=== PATIENT | female | born 1955 | race Caucasian/White ===

== ENCOUNTER 2022-04-13 13:20 | Outpatient (CLI) | payer MEDICARE, BC, SELFPAY ==
--- NOTE | 2022-04-13 13:30 | CRLHL7_ITS ---
For Patients: As a result of the Century Cures Act, medical imaging exams and procedure reports are released immediately into your electronic medical record. You may view this report before your referring provider. If you have questions, please contact your health care provider. DXA BONE MINERAL DENSITY STUDY Current height (in): 67. Weight (lb): 140. Menopause age: 56. Ethnicity: White. 1. Have you had a previous hip or vertebral fracture? No. 2. Have you had any fractures during your adult life which did not result from significant trauma (e.g., auto accident)? No. 3. Did either of your parents have a hip fracture? Yes. 4. Do you smoke? No. 5. Have you ever taken Glucocorticoids? No. 6. Do you have rheumatoid arthritis? No. 7. Do you have secondary osteoporosis? No. 8. Do you drink 3 or more alcoholic drinks per day? No. 9. Are you being treated for osteoporosis? No. 10. Have you ever taken any of the following medications: Actonel, Evista, Fosamax, Miacalcin, Reclast, Boniva, Forteo, HRT (i.e. estrogen/hormone therapy), Protelos, Prolia, Vitamin D, Calcium, other ??? please specify. ANSWER: Yes, calcium. 11. Do you have any of the following medical conditions: Anorexia or bulimia, asthma or emphysema, end stage renal disease, hyperparathyroidism, any seizure disorders, cancer, inflammatory bowel diseases, hysterectomy, other ??? please specify. ANSWER: No. 12. What was your maximum height (inches)? 67.5. 13. Do you perform weight bearing exercise regularly? Yes. 14. Do you regularly consume dairy products? Yes. 15. Do you drink caffeinated beverages? Yes. 16. At what age did your period start? 15. 17. Are you premenopausal? No. 18. How many full term pregnancies have you had? 3. 19. Have you ever missed your period for more than 6 months in a row (not including or menopause)? No. TECHNIQUE: Bone mineral density study was performed using the TBS. FINDINGS: The results of the study expressed as bone mineral density (BMD) are as follows: Lumbar spine L1 to L4: BMD: 0.810 g/cm2. T-score: -2.2. Z-score: -0.3. Neck Left: BMD: 0.754 g/cm2. T-score: -0.9. Z-score: 0.7. Right: BMD: 0.725 g/cm2. T-score: -1.1. Z-score: 0.4. Total Left: BMD: 0.876 g/cm2. T-score: -0.5. Z-score: 0.7. Right: BMD: 0.854 g/cm2. T-score: -0.7. Z-score: 0.6. IMPRESSION: Osteopenia. *Comparison exams done prior to 02/2020 were performed on different unit, [facility]. COMPARISON: Compared with scan of 2016, the bone mineral density has decreased by 7.5 percent at the spine and increased by 0.9 percent at the hip. FRAX 10-year Fracture Risk Major Osteoporotic Fracture: 14 percent Hip Fracture: 0.8percent Reported Risk Factors: [place] () Neck BMD = 0.725, BMI = 21.9, parental fracture Estrada Block M.D. Diagnostic Radiologist [email or web address] SUKH/Dictated by: Estrada Block MD @ 04/13/2022 2:59:00 PM (Electronically Signed)
--- NOTE | 2022-04-13 14:00 | CRLHL7_ITS ---
For Patients: As a result of the Century Cures Act, medical imaging exams and procedure reports are released immediately into your electronic medical record. You may view this report before your referring provider. If you have questions, please contact your health care provider. BILATERAL SCREENING MAMMOGRAM WITH COMPUTER-AIDED DETECTION AND TOMOSYNTHESIS TECHNIQUE: CC and MLO views were obtained. These mammographic images have been obtained using full-field digital technique. These mammographic images were interpreted with the benefit of computer-aided detection. Breast Tomosynthesis was used in this interpretation. COMPARISON FILM: 12/24/18, 09/18/17, 07/24/16 FINDINGS: There are scattered areas of fibroglandular density IMPRESSION: There is no radiographic evidence for malignancy. ASSESSMENT: BI-RADS Category 1: Negative RECOMMENDATION: Routine screening mammogram in 1 year. A lay language report of this examination will be provided to the patient. Estrada Block M.D. Diagnostic Radiologist [email or web address] SUKH/Dictated by: Estrada Block MD @ 04/14/2022 12:32:00 PM (Electronically Signed)
== END 2022-04-13 13:21 | disposition home or self-care (01) ==
LOC: RAD 13:23
PROVIDERS: PCP Internal Medicine; Visit Provider Obstetrics & Gynecology
DX: Z12.31 Encounter for screening mammogram for malignant neoplasm of breast (principal); M85.80 Other specified disorders of bone density and structure, unspecified site; M85.89 Other specified disorders of bone density and structure, multiple sites
CPT/HCPCS: 77063; 77067; 77080

== ENCOUNTER 2022-11-03 08:55 | Outpatient (CLI) | payer MEDICARE, BC, SELFPAY ==
[2022-11-03 10:11] LABS: Cholesterol* 245 mg/dL (90-199); Triglycerides* 139 mg/dL (40-149)
[2022-11-03 10:12] LABS: HDL Cholesterol* 85 mg/dL (>=50); LDL Cholesterol Calculated 132 mg/dL (<100)
[2022-11-03 10:28] LABS: Vitamin D 25 Hydroxy* 43 ng/mL (30-80)
== END 2022-11-03 08:56 | disposition home or self-care (01) ==
LOC: NFLDREF 08:55
PROVIDERS: PCP Internal Medicine; Visit Provider Internal Medicine
DX: E03.9 Hypothyroidism, unspecified (principal); E78.5 Hyperlipidemia, unspecified; M85.80 Other specified disorders of bone density and structure, unspecified site
CPT/HCPCS: 80061; 82306; 84443

== ENCOUNTER 2023-04-25 07:35 | Outpatient (CLI) | payer MEDICARE, BC, SELFPAY | END 2023-04-25 07:36 | disposition home or self-care (01) | LOC: NFLDREF 04-26 08:18 | PROVIDERS: PCP Internal Medicine; Referring Provider Internal Medicine; Visit Provider Internal Medicine | DX: E78.5 Hyperlipidemia, unspecified (principal) | CPT/HCPCS: 80061 ==

== ENCOUNTER 2023-06-19 15:32 | Outpatient (CLI) | payer MEDICARE, BC, SELFPAY ==
--- NOTE | 2023-06-19 15:45 | CRLHL7_ITS ---
For Patients: As a result of the Cures Act, medical imaging exams and procedure reports are released immediately into your electronic medical record. You may view this report before your referring provider. If you have questions, please contact your health care provider. BILATERAL SCREENING MAMMOGRAM WITH COMPUTER-AIDED DETECTION AND TOMOSYNTHESIS TECHNIQUE: CC and MLO views were obtained. These mammographic images have been obtained using full-field digital technique. These mammographic images were interpreted with the benefit of computer-aided detection. Breast tomosynthesis was used in this interpretation. COMPARISON FILM: 04/13/22, 12/24/18, 09/18/17. FINDINGS: There are scattered areas of fibroglandular density. IMPRESSION: There is no radiographic evidence for malignancy. ASSESSMENT: BI-RADS Category 1: Negative RECOMMENDATION: Routine screening mammogram in 1 year. A lay language report of this examination will be provided to the patient. ESTRADA GARVIN M.D. Diagnostic Radiologist [email or web address] ANA/[email or web address] Transcribed: 06/21/2023, 6:[address]/Dictated by: Estrada Garvin MD @ 06/21/2023 12:15:00 PM (Electronically Signed)
== END 2023-06-19 15:33 | disposition home or self-care (01) ==
LOC: MAMMO 15:35
PROVIDERS: PCP Internal Medicine; Visit Provider Internal Medicine
DX: Z12.31 Encounter for screening mammogram for malignant neoplasm of breast (principal)
CPT/HCPCS: 77063; 77067

== ENCOUNTER 2023-11-29 09:14 | Outpatient (CLI) | payer MEDICARE, BC, SELFPAY | END 2023-11-29 09:15 | disposition home or self-care (01) | PROVIDERS: PCP Internal Medicine; Visit Provider Internal Medicine | DX: E03.9 Hypothyroidism, unspecified (principal); E78.5 Hyperlipidemia, unspecified; F41.1 Generalized anxiety disorder; M85.80 Other specified disorders of bone density and structure, unspecified site | CPT/HCPCS: 80061; 82306; 84443 ==

== ENCOUNTER 2024-12-02 08:12 | Outpatient (CLI) | payer MEDICARE, BC, SELFPAY | END 2024-12-02 08:13 | disposition home or self-care (01) | PROVIDERS: PCP Internal Medicine; Visit Provider Internal Medicine | DX: E03.9 Hypothyroidism, unspecified (principal); E78.5 Hyperlipidemia, unspecified; M85.80 Other specified disorders of bone density and structure, unspecified site | CPT/HCPCS: 80048; 80061; 82306; 82550; 84439; 84443 ==

== ENCOUNTER 2025-01-21 08:15 | Outpatient (CLI) | payer MEDICARE, BC, SELFPAY | END 2025-01-21 08:16 | disposition home or self-care (01) | LOC: NFLDREF 01-28 00:19 | PROVIDERS: PCP Internal Medicine; Referring Provider Internal Medicine; Visit Provider Internal Medicine | DX: E78.5 Hyperlipidemia, unspecified (principal) | CPT/HCPCS: 80061 ==

== ENCOUNTER 2025-03-18 09:17 | Outpatient (CLI) | payer MEDICARE, BC, SELFPAY ==
--- NOTE | 2025-03-18 09:15 | CRLHL7_ITS ---
For Patients: As a result of the Century Cures Act, medical imaging exams and procedure reports are released immediately into your electronic medical record. You may view this report before your referring provider. If you have questions, please contact your health care provider. INDICATION: BILATERAL SCREENING MAMMOGRAM, ASYMPTOMATIC 69 Y/O FEMALE COMPARISON: 06/19/2023, 04/13/2022, 12/24/2018 TECHNIQUE: Digital mammogram in CC and MLO projections including computer-aided detection (CAD) and tomosynthesis. BREAST COMPOSITION: There are scattered areas of fibroglandular density. FINDINGS: No suspicious findings. ASSESSMENT: BI-RADS 1 Negative RECOMMENDATION: Annual screening mammogram. A lay language report of this examination will be provided to the patient. Dictated by: Estrada Block MD @ 03/18/2025 13:06:06 (Electronically Signed)
== END 2025-03-18 09:18 | disposition home or self-care (01) ==
LOC: MAMMO 09:18
PROVIDERS: PCP Internal Medicine; Visit Provider Internal Medicine
DX: Z12.31 Encounter for screening mammogram for malignant neoplasm of breast (principal)
CPT/HCPCS: 77063; 77067

== ENCOUNTER 2025-04-21 07:33 | Outpatient (CLI) | payer MEDICARE, BC, SELFPAY | END 2025-04-21 07:34 | disposition home or self-care (01) | LOC: NFLDREF 04-24 18:00 | PROVIDERS: PCP Internal Medicine; Referring Provider Internal Medicine; Visit Provider Internal Medicine | DX: E78.5 Hyperlipidemia, unspecified (principal) | CPT/HCPCS: 80061 ==